=== PATIENT | female | born 1995 | race African-American/Black ===

== ENCOUNTER 2024-05-23 06:47 | Emergency (ER) | payer OTHER ==
[~2024-05-23] VITALS: Ht 167.6 cm; Wt 123.0 kg
[2024-05-23 06:52] VITALS: BP 133/80; PULSE 72; RESP 18; TEMP 36.8; O2SAT 99
[2024-05-23] MEDS: IBUPROFEN 600MG TABLET PO ONE (07:45)
[2024-05-23 08:11] LABS: BASOPHILS % 0.9 % (0.0-2.0); EOSINOPHILS % 2.5 % (0.0-5.0); HEMATOCRIT. 32.9 % (36.0-48.0); HEMOGLOBIN. 10.7 g/dL (12.0-16.0); LYMPHOCYTES % 34.1 % (20.0-50.0); MEAN CORPUSCULAR HEMOGLOBIN 27.8 pg (28.0-32.0); MEAN CORPUSCULAR HGB CONC 32.6 g/dL (31.0-37.0); MEAN CORPUSCULAR VOLUME 85.2 fL (81.0-99.0); MEAN PLATELET VOLUME 6.7 fl (7.4-10.4); MONOCYTES % 8.5 % (2.0-8.0); PLATELET 358 x1000/uL (130-400); RED BLOOD CELL COUNT 3.87 mill/uL (4.2-5.4); RED CELL DISTRIBUTION WIDTH 15.4 % (11.6-14.6); WHITE BLOOD COUNT 5.3 x1000/uL (4.5-11.0)
[2024-05-23 08:27] LABS: CHLORIDE 108 mEq/L (98-107); POTASSIUM 3.5 mEq/L (3.5-5.1); SODIUM 143 mEq/L (136-145)
[2024-05-23 08:28] LABS: CALCIUM 9.3 mg/dL (8.7-10.4); CARBON DIOXIDE 23 mEq/L (21-32)
[2024-05-23 08:33] LABS: CREATININE 0.8 mg/dL (0.6-1.0); GLUCOSE 96 mg/dL (70-105); UREA NITROGEN BLOOD 14 mg/dL (9-23)
[2024-05-23 08:35] LABS: CREATINE KINASE 250 IU/L (34-145)
== END 2024-05-23 11:50 | disposition home or self-care (01) ==
LOC: ER 06:52
DX: M25.572 Pain in left ankle and joints of left foot (principal); M79.672 Pain in left foot; M25.512 Pain in left shoulder; M79.605 Pain in left leg; M79.632 Pain in left forearm; M79.642 Pain in left hand; M79.89 Other specified soft tissue disorders; J45.909 Unspecified asthma, uncomplicated; V00.141A Fall from scooter (nonmotorized), initial encounter; X58.XXXA Exposure to other specified factors, initial encounter; Y93.89 Activity, other specified; Y92.89 Other specified places as the place of occurrence of the external cause; Y99.8 Other external cause status
CPT/HCPCS: 80048; 81025; 82550; 85025; 36415; 73030; 73090; 73130; 73590; 73610; 73630; 29515; 99284; Z7610